=== PATIENT | female | born 1955 | race Caucasian/White ===

== ENCOUNTER → 2017-08-31 | Outpatient (CLI) | payer OTHER ==
[2017-08-31 18:31] LABS: C-REACTIVE PROTEIN, EXT RANGE <0.290 mg/dL (0.000-0.300)
== END | disposition home or self-care (01) ==
LOC: LAB EV 15:25
PROVIDERS: General Practice
DX: E03.9 Hypothyroidism, unspecified (principal); L50.9 Urticaria, unspecified
CPT/HCPCS: 85651; 86140; 86141; 86376; 86800

== ENCOUNTER 2019-05-10 13:53 | Emergency (ER) | payer OTHER ==
[~2019-05-10] VITALS: Ht 167.6 cm; Wt 63.5 kg
[2019-05-10] MEDS ORDERED: ALBU3IS INH (16:04)
== END 2019-05-10 16:50 | disposition home or self-care (01) ==
LOC: ER 13:53
DX: J45.901 Unspecified asthma with (acute) exacerbation (principal); Z88.8 Allergy status to other drugs, medicaments and biological substances
CPT/HCPCS: 71046; 94640; 99283-25

== ENCOUNTER 2022-01-02 13:13 | Emergency (ER) | payer MEDICARE, OTHER ==
[~2022-01-02] VITALS: Ht 162.6 cm; Wt 65.8 kg
[~2022-01-02 13:13] MED LIST: ALBU3IS INH
== END 2022-01-02 15:25 | disposition home or self-care (01) ==
LOC: ER 13:13
DX: R51.9 Headache, unspecified (principal); J45.909 Unspecified asthma, uncomplicated; Z88.8 Allergy status to other drugs, medicaments and biological substances; Z88.5 Allergy status to narcotic agent; Z87.891 Personal history of nicotine dependence
CPT/HCPCS: 70450